=== PATIENT | female | born 1985 | race Two or more races ===

== ENCOUNTER 2024-12-10 16:29 | Emergency (ER) | payer BC, SELFPAY ==
[2024-12-10 16:32] VITALS: BP 155/108
[2024-12-10 16:54] LABS: Hematocrit 42.0 % (37.0-47.0); Hemoglobin 14.3 g/dL (12.0-16.0); Mean Corp Hgb Conc. 34.0 g/dL (33.0-37.0); Mean Corpuscular Volume 87.3 fL (81.0-99.0); Nucleated Red Blood Cells % 0 %; Platelet Count 373 10^3/uL (130-400); Red Cell Dist. Width 12.0 % (11.5-14.5)
[2024-12-10 17:07] LABS: ALT (SGPT) 46 U/L (0-35); AST (SGOT) 29 U/L (14-36); Albumin 4.7 g/dl (3.5-5.0); Alkaline Phosphatase 73 U/L (38-126); Blood Urea Nitrogen 11 mg/dl (7-17); Calcium 9.8 mg/dl (8.4-10.2); Carbon Dioxide 26 mmol/L (22-30); Chloride 104 mmol/L (98-107); Glucose 127 mg/dl (70-99); Potassium 4.2 mmol/L (3.5-5.1); Sodium 138 mmol/L (135-145); Total Protein 8.0 g/dl (6.3-8.2); eGFR > 60.00
[2024-12-10 17:59] VITALS: BMI 28.4
[2024-12-10 18:41] LABS: Urine Character Clear (Clear)
--- NOTE | 2024-12-10 18:51 | ED.GENMED ---
History of Present Illness
General
Chief Complaint: Allergic Reaction
Source: patient and family
Time Seen by Provider: 12/10/24 17:57
History of Present Illness
History of Present Illness:
39-year-old female with no significant past medical history presents to the emergency department for evaluation of bilateral inferior orbital edema that started yesterday, initially only on the right side [facility] where she
was prescribed Pepcid, Benadryl and a Medrol Dosepak, later that evening decided to go to [facility] emergency department who started her on Keflex for presumed infection, today she noticed the edema to the left side of the inferior orbit.
Patient states there is no pain associated with it. She is not sure as to why the symptoms developed but thinks that it could be related to a recent hair dye and shampoo that she used on /Wednesday. Patient states that she has been taking the
medication she was given as prescribed, her main concern was that the swelling is now on the left side despite taking the steroid.
Past History
Past History
ED Past Medical History: None
ED Past Surgical History: and Urological
Social History
Tobacco: Non-smoker
Alcohol: Occasional
Drug: None
Personal:
Living: with family
Review of Systems
Review of Systems
All Other Systems: ROS reviewed and negative except as documented in HPI and ROS
Phy Exam
Physical Exam
Physical Exam:
GENERAL: Alert , in no apparent distress
HEAD: Normocephalic atraumatic
EYE: conjunctiva clear
NECK: Supple,
ENT: o/p clr, mmm. no tonsillar edema, uvula midline, airway patent, no stridor
CARDIAC: Regular rate and rhythm
LUNGS: Clear breath sounds bilaterally, no acute respiratory distress, no wheezes/rales/rhonchi
NEUROLOGICAL: Alert and oriented
SKIN: Warm and dry, edema periorbitally along the inferior orbits, well demarcated, blanching
MUSCULOSKELETAL: well perfused.
PSYCH: Normal and appropriate interaction.
Scores
Heart Failure Risk
Heart Failure Risk Score: Not Applicable
Heart Score for Chest Pain Patients
STEMI patient?: Not applicable
Withdrawal Assessment of Alcohol
Withdrawal Assessment Completed?: Not applicable
Course
Orders/Labs/Results
Orders:
Orders
12/10/24 16:42
Complete Blood Count/With Diff Urgent
Comprehensive Metabolic Panel Urgent
12/10/24 18:33
Urinalysis Reflex To Culture Urgent
Date Specimen was Collected: 12/10/24
Time Specimen was Collected: 18:31
Urine Microscopic Reflex Cult Urgent
Abnormal Lab Results
12/10/24 12/10/24
16:42 18:33
WBC 14.0 H 10^3/uL
(4.8-10.8)
Abs Immat Gran (auto) 0.1 H 10^3/uL
(0-0.05)
Absolute Neuts (auto) 11.0 H 10^3/uL
(1.4-6.5)
Absolute Monos (auto) 0.7 H 10^3/uL
(0.1-0.6)
Immature Gran % 0.6 H %
(0-0.5)
Neutrophils % 79.0 H %
(42.2-75.2)
Lymphocytes % 12.3 L %
(20.5-51.1)
Glucose 127 H mg/dl
(70-99)
ALT 46 H U/L
(0-35)
Ur Occult Blood Reflex 1+ A
(Negative)
Urine RBC 3-6 A /HPF
(0-2)
Urine Bacteria (Reflex) Few A
(Negative)
12/10/24 16:42
12/10/24 16:42
Vital Signs
Initial and Last Documented VS:
Initial Vital Signs
Temp Pulse Resp BP Pulse Ox
98.9 F 93 16 155/108 99
12/10/24 16:32 12/10/24 16:32 12/10/24 16:32 12/10/24 16:32 12/10/24 16:32
Last Documented Vital Signs
Temp Pulse Resp BP Pulse Ox
98.9 F 93 16 155/108 99
12/10/24 16:32 12/10/24 16:32 12/10/24 16:32 12/10/24 16:32 12/10/24 18:52
MDM/Problems Addressed
Differential Diagnosis Includes:
Contact dermatitis
Erysipelas
Lupus
Nephritic/nephrotic syndrome
Tinea infection
Preseptal/orbital cellulitis
MDM/Problems Addressed:
39-year-old female presenting to the ER for evaluation of swelling to the bilateral inferior orbits, notes that she recently had a new shampoo and hair dye color in the days preceding the edema. No respiratory concerns, no nausea or vomiting. Labs
initiated in triage reassuring, leukocytosis likely related to being on the steroids currently. I did add on a urinalysis which did not show any proteinuria making nephritic/nephrotic syndrome very unlikely as well as patient was not on any
medications prior to this to start this complication. There is no pain associated making infectious etiologies much less likely. At this time I do suspect contact dermatitis is most likely. Discussed indications for epinephrine and at this time
patient is not having any signs of anaphylaxis so we will avoid this medication. Continue the medications patient is already currently taking, recommended to follow-up with [facility] if symptoms continue. Otherwise stable for discharge home.
*Pulse Oximetry
SaO2: 99
Oxygen Mode of Delivery: Room air
Patient hypoxic: no
*Critical Care Note
Total Time (30-74mins, 75-104mins- exclusive of procedures): Not Applicable
ED Attending Note
-
Portions of this chart may have been created with voice recognition software.� Occasional wrong word or��sound alike� substitutions may have occurred due to the inherent limitations of voice recognition software.
Discharge Plan
Departure
Patient Disposition: Home (Routine Discharge)
Date of Disposition: 12/10/24
Time of Disposition: 18:51
Patient with high blood pressure during this ER visit?: Yes
Discharge Problem:
Allergic reaction
Instructions: Allergic reaction - ED (DC)
Referrals:
WANDY GREENE CRNP [Family Provider, Family Practice]
Mandy Carcamo MD [Active, [employer]]
Interventions
Interventions:
*Risk Screen - Suicide Last Done: 12/10/24 16:32
*General Assessment Last Done: 12/10/24 16:32
*Neglect/Abuse Screening Last Done: 12/10/24 16:32
*ED- Fall Risk Assessment Last Done: 12/10/24 16:32
*ED COVID-19 Vaccine History Last Done: 12/10/24 16:32
*ED Influenza Vaccine History Last Done: 12/10/24 16:32
*Nursing Disposition Last Done: 12/10/24 19:01
ED- Cardiac Assessment Last Done: 12/10/24 18:10
ED- Pulmonary Assessment Last Done: 12/10/24 18:10
ED-Skin Assessment Last Done: 12/10/24 18:09
Discharge Date and Time
Discharge Date/Time: 12/10/24 19:06
Print Language: MAURITIAN
[2024-12-10 18:56] LABS: Urine Squamous Cell 0-2 /LPF (Few); Urine White Cell 0-2 /HPF (0-5)
== END 2024-12-10 19:06 | disposition home or self-care (01) ==
LOC: EMR 16:29
PROVIDERS: Physician Assistant Medical; EMERGENCY PHYSICIAN Emergency Medicine; FAMILY PHYSICIAN Nurse Practitioner Family
DX: T78.40XA Allergy, unspecified, initial encounter (principal); X58.XXXA Exposure to other specified factors, initial encounter; H05.222 Edema of left orbit; D72.829 Elevated white blood cell count, unspecified
CPT/HCPCS: 99283; 80053; 81003; 81015; 85025